=== PATIENT | female | born 1995 | race African-American/Black ===

== ENCOUNTER 2023-12-15 05:27 | Emergency (ER) | payer MEDICAID ==
[~2023-12-15] VITALS: Ht 165.1 cm; Wt 63.1 kg
[2023-12-15 05:36] VITALS: O2SAT 99
[2023-12-15] MEDS: LORAZEPAM 0.5MG TABLET PO ONE (06:26)
[2023-12-15] MEDS: IPRATROPIUM BROMIDE (0.02%) 0.5MG/2.5ML NEB HHN STA (07:00)
[2023-12-15] MEDS: ALBUTEROL (0.083%) 2.5MG/3ML NEB HHN STA (07:00)
[2023-12-15] MEDS: PREDNISONE 20MG TABLET PO STA (07:03)
[2023-12-15] MEDS: KETOROLAC 15MG/ML VIAL IM ONE (07:03)
[2023-12-15 07:04] LABS: BASOPHILS % 0.8 % (0.0-2.0); DIFFERENTIAL COMMENT 0; EOSINOPHILS % 0.8 % (0.0-5.0); HEMATOCRIT. 32.8 % (36.0-48.0); HEMOGLOBIN. 10.9 g/dL (12.0-16.0); LYMPHOCYTES % 17.1 % (20.0-50.0); MEAN CORPUSCULAR HEMOGLOBIN 26.1 pg (28.0-32.0); MEAN CORPUSCULAR HGB CONC 33.2 g/dL (31.0-37.0); MEAN CORPUSCULAR VOLUME 78.6 fL (81.0-99.0); MEAN PLATELET VOLUME 10.6 fl (7.4-10.4); MONOCYTES % 8.5 % (2.0-8.0); NEUTROPHILS % 72.8 % (40.0-76.0); PLATELET 219 x1000/uL (130-400); RED BLOOD CELL COUNT 4.18 mill/uL (4.2-5.4); RED CELL DISTRIBUTION WIDTH 14.3 % (11.6-14.6); WHITE BLOOD COUNT 5.1 x1000/uL (4.5-11.0)
[2023-12-15 07:10] LABS: CHLORIDE 110 mEq/L (98-107); POTASSIUM 3.6 mEq/L (3.5-5.1); SODIUM 140 mEq/L (136-145)
[2023-12-15 07:11] LABS: CALCIUM 9.6 mg/dL (8.7-10.4); CARBON DIOXIDE 23 mEq/L (21-32)
[2023-12-15 07:12] LABS: PROTHROMBIN TIME 11.2 sec (9.6-11.0)
[2023-12-15 07:14] LABS: HCG SCREEN NEGATIVE
[2023-12-15 07:16] LABS: CREATININE 0.7 mg/dL (0.6-1.0); GLUCOSE 90 mg/dL (70-105); UREA NITROGEN BLOOD 6 mg/dL (9-23)
[2023-12-15 07:17] LABS: TROPONIN I HIGH SENSITIVITY < 4 ng/L (3.0-34)
[2023-12-15 07:27] VITALS: PULSE 84; RESP 16
[2023-12-15 08:54] LABS: TROPONIN I HIGH SENSITIVITY < 4 ng/L (3.0-34)
[2023-12-15] MEDS ORDERED: P20 MT (12:43)
[2023-12-15] MEDS ORDERED: ALBU18HF2 IH (12:43)
[2023-12-15 13:03] VITALS: BP 128/73; PULSE 76; RESP 18; TEMP 36.72516; O2SAT 100
== END 2023-12-15 13:05 | disposition home or self-care (01) ==
LOC: ER 05:44
DX: J45.909 Unspecified asthma, uncomplicated (principal)
CPT/HCPCS: 80048; 81025; 84703; 83880; 85025; 85610; 84484; 36415; 71045; 73562; 73630; 93970; 94640; 93005; 96372; 99285; J7512; J1885; Z7610 ×6